=== PATIENT | male | born 1985 | race African-American/Black ===

== ENCOUNTER 2017-04-15 15:17 | Emergency (ER) | payer SELFPAY ==
[2017-04-15] MEDS ORDERED: diphenhydrAMINE HCl 25 MG CAP ONE (15:50)
[2017-04-15] MEDS ORDERED: Prochlorperazine 10 MG/2 ML VIAL ONE ×2 (15:50→15:53)
[2017-04-15] MEDS ORDERED: Sulfameth/Trimethoprim DS 800-160mg TAB ONE ×2 (16:07→16:08)
--- NOTE | 2017-04-15 16:08 | CT ---
CT OF THE BRAIN WITHOUT CONTRAST 04/15/[address] was done for headaches. The ventricles are normal in size with no shift. No intracr anial bleeding, mass or sign of stroke was found. The skull appears normal. There is no air fluid le naye in the sphenoid sinus and the mastoid air cells are clear. There is some minor mucosal thickenin g in the ethmoid sinuses bilaterally. IMPRESSION: 1. No acute intracranial findings. 2. Minor mucosal thickening in the ethmoid sinuses. POS: HOME
== END 2017-04-15 16:10 | disposition home or self-care (01) ==
LOC: BURERS 15:17
DX: J01.90 Acute sinusitis, unspecified (principal)
CPT/HCPCS: 70450; J0780

== ENCOUNTER 2017-11-17 21:04 | Emergency (ER) | payer BC, SELFPAY ==
[2017-11-17] MEDS ORDERED: Ketorolac Tromethamine 60 MG/2 ML VIAL ONE (21:19)
== END 2017-11-17 21:25 | disposition home or self-care (01) ==
LOC: BURERS 21:04
DX: J02.9 Acute pharyngitis, unspecified (principal)
CPT/HCPCS: 96372; J1885

== ENCOUNTER 2018-03-13 22:33 | Emergency (ER) | payer BC ==
[2018-03-13 23:17] LABS: Hemoglobin 12.5 g/dL (14.0-18.0); Mean Corpuscular HGB CONC 30.4 g/dL (32.0-36.0); Mean Corpuscular Hemoglobin 21.2 pg (27.0-31.0); Mean Corpuscular Volume 69.7 fL (78.0-98.0); Mean Platelet Volume 12.9 fL (7.4-10.4); Platelet Count 215 thou/uL (130-400); RBC Distribution Width 12.9 % (11.5-14.5); White Blood Cell (WBC) Count 6.8 thou/uL (4.8-10.8)
[2018-03-13 23:24] LABS: ALT (SGPT) 18 U/L (8-55); AST (SGOT) 19 U/L (5-34); Alkaline Phosphatase 79 U/L (40-150); Anion Gap 13 mmol/L (10-20); BUN (Urea Nitrogen) 11 mg/dL (8.9-20.6); Bilirubin, Total 0.2 mg/dL (0.2-1.2); Calc. Creatinine Clearance 0 mL/min (70-130); Calcium 8.9 mg/dL (7.8-10.44); Carbon Dioxide 24 mmol/L (22-29); Chloride 108 mmol/L (98-107); Estimated GFR-MDRD Greater than 90; Glucose 100 mg/dL (70-105); Magnesium 1.9 mg/dL (1.6-2.6); Potassium 4.2 mmol/L (3.5-5.1); Sodium 141 mmol/L (136-145)
[2018-03-13 23:32] LABS: #Basophils 0.2 thou/uL (0.0-0.2); #Eosinphils 0.4 thou/uL (0.0-0.7); #Lymphocytes 2.7 thou/uL (1.20-3.40); #Monocytes 0.7 thou/uL (0.11-0.59); #Neutrophils 2.9 thou/uL (1.40-6.50); %Basophils 2.5 % (0.0-1.0); %Eosinophils 5.3 % (0.0-10.0); %Lymphocytes 39.5 % (21.0-51.0); %Monocytes 10.2 % (0.0-10.0); %Neutrophils 42.5 % (42.0-75.0); Hypochromia SLIGHT = 6-15 cells (100X) (0-5/hpf); MDiff Complete? YES; Microcytosis SLIGHT = 6-15 cells (100X) (0-5/hpf); PLT Morphology Comment Appears Adequate
[2018-03-13 23:52] LABS: CKMB 2.2 ng/mL (0-6.6); Troponin I Less than 0.010 ng/mL (< 0.028)
--- NOTE | 2018-03-14 07:25 | RAD ---
CHEST 2 VIEWS: Date: 03/13/18 The heart is normal in size and the lungs are clear. No infiltrate or effusion seen. There is no vasc ular congestion or edema. The trachea bows very slightly towards the left at the thoracic inlet, but this may be due to the patient being turned slightly. One should be sure that there is no palpable th yroid abnormality here. The bony structures are unremarkable. IMPRESSION: 1. No acute thoracic findings. 2. See comments regarding trachea. CODE T. POS: HOME
== END 2018-03-14 00:23 | disposition home or self-care (01) ==
LOC: BURERS 22:33
DX: D50.9 Iron deficiency anemia, unspecified (principal)
CPT/HCPCS: 36415; 71046; 80053; 82553; 83735; 84443; 84484; 85025; 93005; 94760

== ENCOUNTER 2018-03-21 19:17 | Emergency (ER) | payer BC ==
[2018-03-21] MEDS ORDERED: traMADol HCl 50 MG TAB ONE (19:51)
[2018-03-21] MEDS ORDERED: Ibuprofen 800 MG TAB ONE (19:51)
== END 2018-03-21 19:58 | disposition home or self-care (01) ==
LOC: BURERS 19:17
DX: M26.602 Left temporomandibular joint disorder, unspecified (principal)
CPT/HCPCS: 99283

== ENCOUNTER 2019-03-17 01:00 | Emergency (ER) | payer BC ==
[2019-03-17] MEDS ORDERED: Ibuprofen 800 MG TAB ONE (01:23)
[2019-03-17] MEDS ORDERED: Cyclobenzaprine 10 MG TAB ONE (01:23)
== END 2019-03-17 01:20 | disposition home or self-care (01) ==
LOC: BURERS 01:00
DX: M62.830 Muscle spasm of back (principal)
CPT/HCPCS: 99283

== ENCOUNTER 2019-10-16 16:52 | Emergency (ER) | payer BC | END 2019-10-16 17:45 | disposition home or self-care (01) | LOC: BURERS 16:52 | DX: J06.9 Acute upper respiratory infection, unspecified (principal) | CPT/HCPCS: 99283 ==

== ENCOUNTER 2019-12-18 20:08 | Emergency (ER) | payer BC, OTHER ==
[2019-12-18] MEDS ORDERED: Ondansetron PF 4 MG/2 ML Vial ONE (20:17)
[2019-12-18 20:56] LABS: #Basophils 0.1 thou/uL (0.0-0.2); #Lymphocytes 1.6 thou/uL (1.20-3.40); #Monocytes 0.5 thou/uL (0.11-0.59); #Neutrophils 3.4 thou/uL (1.40-6.50); %Basophils 1.1 % (0.0-1.0); %Monocytes 9.5 % (0.0-10.0); %Neutrophils 61.4 % (42.0-75.0); ALT (SGPT) 25 U/L (8-55); AST (SGOT) 36 U/L (5-34); Alkaline Phosphatase 69 U/L (40-110); Anion Gap 15 mmol/L (10-20); BUN (Urea Nitrogen) 15 mg/dL (8.9-20.6); Bilirubin, Total 0.5 mg/dL (0.2-1.2); Calc. Creatinine Clearance 0 mL/min (70-130); Calcium 8.6 mg/dL (7.8-10.44); Carbon Dioxide 20 mmol/L (22-29); Chloride 101 mmol/L (98-107); Estimated GFR-MDRD 61; Globulin 4.1 g/dL (2.4-3.5); Glucose 102 mg/dL (70-105); Hemoglobin 14.4 g/dL (14.0-18.0); Hypochromia SLIGHT = 6-15 cells (100X) (0-5/hpf); Large Platelets MODERATE; MDiff Complete? YES; Mean Corpuscular HGB CONC 28.7 g/dL (32.0-36.0); Mean Corpuscular Hemoglobin 20.2 pg (27.0-31.0); Mean Corpuscular Volume 70.4 fL (78.0-98.0); Mean Platelet Volume 10.9 fL (7.4-10.4); Microcytosis MODERATE=15-30 cells (100X) (0-5/hpf); Platelet Count 152 thou/uL (130-400); Potassium 4.2 mmol/L (3.5-5.1); Protein, Total 8.1 g/dL (6.0-8.3); RBC Distribution Width 12.9 % (11.5-14.5); Red Blood Cell (RBC) Count Greater than 7.09 mill/uL (4.70-6.10); Sodium 132 mmol/L (136-145); White Blood Cell (WBC) Count 5.6 thou/uL (4.8-10.8)
[2019-12-18] MEDS ORDERED: Ibuprofen 200 MG TAB ONE (21:40)
--- NOTE | 2019-12-19 10:57 | RAD ---
PORTABLE CHEST: DATE: 12/18/2019. FINDINGS: An AP portable film at 2048 is compared with a 03/13/2018 study. There is less than a deep inspiration . This plus the portable technique make fine details harder to see in this patient. There is probab ly a little bit of right basilar streaking and there may be some in the lingula on the left side. Th e upper lobes seem relatively clear in the apical regions. There are no large effusions. IMPRESSION: Questionable basilar streaking. POS: HOME
== END 2019-12-18 21:55 | disposition home or self-care (01) ==
LOC: BURERS 20:08
DX: U07.1 COVID-19 (principal); E66.9 Obesity, unspecified
CPT/HCPCS: 71045; 80053; 85025; 96361; 96374; J2405

== ENCOUNTER 2019-12-22 11:14 | Emergency (ER) | payer BC, OTHER ==
[2019-12-22 12:14] LABS: Bilirubin Small (Negative); Blood, Urine Trace (Negative); Clarity Slightly Cloudy (Clear); Glucose, Urine (Dipstick) Negative (Negative); Leukocyte Negative (Negative); Nitrite Negative (Negative); Protein, Urine (Dipstick) 100 mg/dL (Neg-Trace)
[2019-12-22 12:21] LABS: Bacteria/HPF Rare-Few HPF (None Seen); Broad Cast None Seen LPF (None Seen); Calcium Oxalate Crystals None Seen HPF (None Seen); Cellular Cast None Seen LPF (None Seen); Epithelial Cast None Seen LPF (None Seen); Fatty Cast None Seen LPF (None Seen); Mucous/LPF 1+ LPF (<2+); Other Casts None Seen LPF (None Seen); Oval Fat Bodies/HPF None Seen HPF (None Seen); RBC/HPF 0-3 HPF (0-3); Red Blood Cell Cast None Seen LPF (None Seen); Renal Epithelial None Seen HPF (None Seen); Sperm/HPF None Seen HPF (None Seen); Squamous Epithelial 0-3 HPF (0-3); Transitional Epithelial None Seen HPF (None Seen); Trichomonas/HPF None Seen HPF (None Seen); Triple Phosphate Crystal None Seen HPF (None Seen); Unclassified Crystals None Seen HPF (None Seen); Waxy Cast None Seen LPF (None Seen); White Blood Cell Cast None Seen LPF (None Seen); Yeast-Budding None Seen HPF (None Seen); Yeast-Hyphae None Seen HPF (None Seen)
[2019-12-22 13:17] LABS: ALT (SGPT) 19 U/L (8-55); AST (SGOT) 32 U/L (5-34); Albumin 3.8 g/dL (3.5-5.0); Alkaline Phosphatase 66 U/L (40-110); Anion Gap 14 mmol/L (10-20); BUN (Urea Nitrogen) 11 mg/dL (8.9-20.6); Bilirubin, Total 0.6 mg/dL (0.2-1.2); Calc. Creatinine Clearance 0 mL/min (70-130); Carbon Dioxide 21 mmol/L (22-29); Chloride 104 mmol/L (98-107); Estimated GFR-MDRD Greater than 90; Globulin 3.8 g/dL (2.4-3.5); Glucose 120 mg/dL (70-105); Lipase 32 U/L (8-78); Potassium 3.8 mmol/L (3.5-5.1); Protein, Total 7.6 g/dL (6.0-8.3); Sodium 135 mmol/L (136-145)
[2019-12-22 13:20] LABS: #Basophils 0.2 thou/uL (0.0-0.2); #Eosinphils 0.2 thou/uL (0.0-0.7); #Lymphocytes 1.4 thou/uL (1.20-3.40); #Monocytes 1.2 thou/uL (0.11-0.59); #Neutrophils 6.5 thou/uL (1.40-6.50); %Basophils 1.6 % (0.0-1.0); %Eosinophils 2.3 % (0.0-10.0); %Lymphocytes 14.5 % (21.0-51.0); %Monocytes 12.4 % (0.0-10.0); %Neutrophils 69.2 % (42.0-75.0); Hemoglobin 13.2 g/dL (14.0-18.0); Hypochromia SLIGHT = 6-15 cells (100X) (0-5/hpf); Large Platelets SLIGHT; MDiff Complete? YES; Mean Corpuscular Volume 71.3 fL (78.0-98.0); Mean Platelet Volume 11.5 fL (7.4-10.4); Microcytosis SLIGHT = 6-15 cells (100X) (0-5/hpf); Platelet Count 249 thou/uL (130-400); RBC Distribution Width 12.8 % (11.5-14.5); Red Blood Cell (RBC) Count 6.64 mill/uL (4.70-6.10); White Blood Cell (WBC) Count 9.4 thou/uL (4.8-10.8)
[2019-12-22] MEDS ORDERED: cefTRIAXone\\ROCEPHIN 2 GM VIAL ONE (13:35)
[2019-12-22] MEDS ORDERED: Sodium Chloride 0.9% 100 ML ONE (13:35)
[2019-12-22] MEDS ORDERED: Azithromycin 500 MG VIAL ONE (13:35)
--- NOTE | 2019-12-22 13:53 | CT ---
CT ABDOMEN AND PELVIS WITHOUT CONTRAST: Date: 12-22-[address] was done for evaluation of right upper quadrant pain. The patient is known Covid pos itive. A recent chest x-ray showed some basilar streaking. FINDINGS: Today's exam shows a peripheral infiltrate in the right lower lobe posteriorly. It is partially dense and partially ground glass. There is also a very tiny patch in the left lower lobe peripherally. Thi s is presumably related to his Covid diagnosis. The liver, spleen, pancreas, adrenal glands and aorta were unremarkable within the limitations of a n oncontrast scan. The gallbladder was 8 cm long, but it did not seem thick, nor was there any inflamma tory change around it. It did not really appear distended (said knowing that some Covid patients expe rience cholestasis). There is a 2 cm ill-defined lucency in the middle third of the left kidney medially. Statistically, t his is most likely a cyst, however, other pathology is possible including abscess or tumor. My unders tanding is that the patient does not have symptoms on this side. Nevertheless, it would be important in this patient to get an elective ultrasound follow up to prove if it is purely cystic. CT of the pelvis shows no pelvic masses, inflammatory changes or free fluid. The bony structures were unremarkable. IMPRESSION: 1. Peripheral right lower lobe infiltrate posteriorly and tiny patchy infiltrate in the left lower lo be. These are presumed to be of consequence of the known Covid diagnosis. 2. 8 cm long gallbladder, but no signs that it may be distended or the wall be thickened. 3. 2 cm amorphous lucency in the left kidney. Statistically, most likely a cyst, but ultrasound is st rongly recommended to be certain. 4. No evidence of bowel infarction, thickening, free air or portal venous air within the limitations of a noncontrast study. Findings and recommendations discussed with Dr. Zaragoza at 1320 on 12-22-2019. POS: HOME
--- NOTE | 2019-12-22 15:51 | RAD ---
PORTABLE CHEST: Date: 12-22-2019 An AP portable film at 1404 is compared with a 12-18-2019 study. FINDINGS: The right basilar streaking seen previously and possible lingular streaking, is not evident today. On this film, the lungs seem fairly clear, however, on a CT done just prior to this it showed a periphe ral infiltrate in the right lower lobe posteriorly. This is not visible on this plain radiograph. The mediastinum currently appears normal. The upper lobes are clear. The trachea is midline. IMPRESSION: No focal pulmonary findings of concern. However, see CT report done earlier the same day. POS: HOME
== END 2019-12-22 14:10 | disposition home or self-care (01) ==
LOC: BURERS 11:14
DX: U07.1 COVID-19 (principal); J18.9 Pneumonia, unspecified organism; R10.9 Unspecified abdominal pain; Z09 Encounter for follow-up examination after completed treatment for conditions other than malignant neoplasm; Z86.19 Personal history of other infectious and parasitic diseases; E66.9 Obesity, unspecified
CPT/HCPCS: 71045; 74176; 80053; 81003; 81015; 83605; 83690; 85025; J0456; J0696; J3490

== ENCOUNTER 2019-12-26 12:30 | Emergency (ER) | payer BC, OTHER ==
[2019-12-26 13:27] LABS: #Basophils 0.3 thou/uL (0.0-0.2); #Lymphocytes 2.1 thou/uL (1.20-3.40); #Monocytes 1.3 thou/uL (0.11-0.59); #Neutrophils 15.7 thou/uL (1.40-6.50); %Basophils 1.5 % (0.0-1.0); %Eosinophils 0.1 % (0.0-10.0); %Lymphocytes 10.8 % (21.0-51.0); %Monocytes 6.9 % (0.0-10.0); %Neutrophils 80.8 % (42.0-75.0); Hemoglobin 12.6 g/dL (14.0-18.0); Mean Corpuscular Volume 69.2 fL (78.0-98.0); Platelet Count 323 thou/uL (130-400); RBC Distribution Width 12.1 % (11.5-14.5); Red Blood Cell (RBC) Count 6.28 mill/uL (4.70-6.10); White Blood Cell (WBC) Count 19.5 thou/uL (4.8-10.8)
[2019-12-26 13:29] LABS: Bilirubin Small (Negative); Blood, Urine Small (Negative); Clarity Clear (Clear); Glucose, Urine (Dipstick) Negative (Negative); Ketone, Urine Negative (Negative); Leukocyte Negative (Negative); Nitrite Negative (Negative); Protein, Urine (Dipstick) 100 mg/dL (Neg-Trace)
[2019-12-26 13:44] LABS: ALT (SGPT) 74 U/L (8-55); AST (SGOT) 66 U/L (5-34); Albumin 3.6 g/dL (3.5-5.0); Alkaline Phosphatase 74 U/L (40-110); Anion Gap 14 mmol/L (10-20); BUN (Urea Nitrogen) 17 mg/dL (8.9-20.6); Bilirubin, Total 0.7 mg/dL (0.2-1.2); Calc. Creatinine Clearance 0 mL/min (70-130); Carbon Dioxide 23 mmol/L (22-29); Chloride 100 mmol/L (98-107); Estimated GFR-MDRD 71; Globulin 4.7 g/dL (2.4-3.5); Glucose 138 mg/dL (70-105); Lipase 64 U/L (8-78); Potassium 3.9 mmol/L (3.5-5.1); Protein, Total 8.3 g/dL (6.0-8.3); Sodium 133 mmol/L (136-145)
[2019-12-26 13:49] LABS: RBC/HPF 0-3 HPF (0-3); Squamous Epithelial 0-3 HPF (0-3); WBC/HPF 0-3 HPF (0-3)
[2019-12-26 13:50] LABS: Bacteria/HPF Rare-Few HPF (None Seen)
[2019-12-26] MEDS ORDERED: Cefepime 2 GM VIAL ONE (13:51)
[2019-12-26] MEDS ORDERED: Sodium Chloride 0.9% 100 ML ONE (13:51)
[2019-12-26 13:57] LABS: MDiff Complete? YES; Microcytosis SLIGHT = 6-15 cells (100X) (0-5/hpf); Platelet Morphology Comment Appears Adequate
[2019-12-26] MEDS ORDERED: Vancomycin 1.5 GRAM/300 ML BAG ONE (14:11)
--- NOTE | 2019-12-26 17:56 | CT ---
CT CHEST, ABDOMEN AND PELVIS WITHOUT CONTRAST 12/26/[address] of the chest, abdomen and pelvis was done without oral or IV contrast. Comparison is made w ith the recent prior study dated 12/22/19. CT OF THE THORAX: A dense right lower lobe consolidation is seen posteriorly consistent with pneumonia. This has become denser and larger in coverage since the prior exam. There are a few patchy ground glass areas in the left upper lobe consistent with the patient's COVID diagnosis. There are no effusions. No mediastina l mass or substantial adenopathy was seen. CT OF THE ABDOMEN AND PELVIS: CT of the abdomen and pelvis showed no acute findings in the liver, spleen, pancreas, adrenal glands, kidneys, gallbladder or abdominal aorta within the limitations of a noncontrast study. As before, th ere is a 2 cm rounded lucency in the mid left kidney. It has not changed in size or shape. Statistica lly, it is most likely a cyst, but ultrasound is needed to confirm this at some point. The gallbladde r was previously rather large, but today it is normal in size. There is no inflammatory change around it. The bowel shows no dilation, wall thickening, or inflammatory change around it. No free air or free f luid was seen. An incidental small calcification seen near the upper left ureter does not appear to be in it, nor is there any hydronephrosis, nor has it changed at all in appearance since the prior st udy. I doubt its significance. CT of the pelvis shows no pelvic masses, fluid collections, or inflammatory changes. IMPRESSION: 1. Right lower lobe pneumonia greater in density and coverage over the last four days. 2. A few tiny patchy ground glass densities in the left upper lobe consistent with the known kelly gnosis of COVID. 3. No enlargement of the gallbladder today. 4. No other issues with the bowel or other major organs that appear acute. 5. 2 cm lucency in the left kidney, unchanged. Statistically most likely a cyst, but elective ul trasound should be done at some point to prove this. Findings discussed with Dr. Zaragoza at 1352 on 12/26/19. POS: HOME
== END 2019-12-26 15:11 | disposition short-term general hospital (02) ==
LOC: BURERS 12:30
DX: A41.9 Sepsis, unspecified organism (principal); J18.9 Pneumonia, unspecified organism; Z79.899 Other long term (current) drug therapy
CPT/HCPCS: 71250; 74177; 80053; 81003; 81015; 83605; 83690; 83880; 84484; 85025; 87040; 87086; 93005; 96361; 96365; 96367; J0692; J3370; J3490

== ENCOUNTER 2021-12-29 18:09 | Emergency (ER) | payer BC ==
[2021-12-29] MEDS ORDERED: Ketorolac Tromethamine 30 MG/ML VIAL ONE (18:30)
[2021-12-29 18:55] LABS: ALT (SGPT) 26 U/L (8-55); AST (SGOT) 27 U/L (5-34); Albumin 4.1 g/dL (3.5-5.0); Alkaline Phosphatase 77 U/L (40-110); Anion Gap 15 mmol/L (10-20); BUN (Urea Nitrogen) 16 mg/dL (8.9-20.6); Bilirubin, Total 0.3 mg/dL (0.2-1.2); Calc. Creatinine Clearance 0 mL/min (70-130); Calcium 8.9 mg/dL (7.8-10.44); Carbon Dioxide 22 mmol/L (22-29); Chloride 108 mmol/L (98-107); Globulin 3.9 g/dL (2.4-3.5); Glucose 113 mg/dL (70-105); Potassium 3.6 mmol/L (3.5-5.1); Sodium 141 mmol/L (136-145)
[2021-12-29 18:59] LABS: Anisocytosis SLIGHT = 6-15 cells (100X) (0-5/hpf); Hemoglobin 13.1 g/dL (14.0-18.0); Hypochromia MODERATE=16-30 cells (100X) (0-5/hpf); MDiff Complete? YES; Mean Corpuscular HGB CONC 30.6 g/dL (32.0-36.0); Mean Corpuscular Hemoglobin 21.3 pg (27.0-31.0); Mean Corpuscular Volume 69.8 fL (78.0-98.0); Mean Platelet Volume 10.7 fL (7.4-10.4); Microcytosis MODERATE=15-30 cells (100X) (0-5/hpf); Platelet Count 222 thou/uL (130-400); Poikilocytosis SLIGHT = 6-15 cells (100X) (0-5/hpf); RBC Distribution Width 13.6 % (11.5-14.5); Red Blood Cell (RBC) Count 6.14 mill/uL (4.70-6.10); Rouleaux Formation SLIGHT = 1-5 cells (100X) (None Seen)
[2021-12-29 19:02] LABS: Band 1 % (5-11); Eosinophils 2 % (0-10); Lymphocytes 23 % (21-51); Manual Diff?? YES; Monocytes 11 % (0-10); Neutrophil 62 % (42-75); Reactive Lymphocytes 1 % (0-10)
== END 2021-12-29 20:02 | disposition home or self-care (01) ==
LOC: BURERS 18:09
DX: E86.0 Dehydration (principal); B34.9 Viral infection, unspecified; E66.9 Obesity, unspecified; D50.9 Iron deficiency anemia, unspecified
CPT/HCPCS: 36415; 71045; 80053; 84484; 85025; 87804; 93005; 96361; 96374; J1885

== ENCOUNTER 2022-04-06 16:10 | Emergency (ER) | payer BC ==
[2022-04-06] MEDS ORDERED: Dexamethasone 4 MG TAB ONE (17:26)
[2022-04-06] MEDS ORDERED: Acetaminophen 500 MG TAB ONE (17:26)
[2022-04-06] MEDS ORDERED: Bicillin LA 1.2 MILLION UNITS/2 ML SYRINGE ONE (17:44)
== END 2022-04-06 18:00 | disposition home or self-care (01) ==
LOC: BURERS 16:10
DX: J02.0 Streptococcal pharyngitis (principal)
CPT/HCPCS: 87430; 87804; 96372; 99283; J0561; J8540

== ENCOUNTER 2023-01-30 04:54 | Emergency (ER) | payer BC ==
[2023-01-30] MEDS ORDERED: Acetaminophen 500 MG TAB ONE (05:06)
[2023-01-30] MEDS ORDERED: Ibuprofen 800 MG TAB ONE (05:06)
[2023-01-30 06:01] LABS: SARS-CoV-2 NAA Rapid Test Not Detected (NotDetected)
[2023-01-30 06:45] LABS: Bilirubin Negative (Negative); Blood, Urine Large (Negative); Clarity Clear (Clear); Glucose, Urine (Dipstick) Negative (Negative); Ketone, Urine Negative (Negative); Leukocyte Large (Negative); Nitrite Positive (Negative); Protein, Urine (Dipstick) 100 mg/dL (Neg-Trace)
[2023-01-30 06:53] LABS: CAUTI Indications for Culture Dysuria,urgency,freq; RBC/HPF 21-50 HPF (0-3); WBC/HPF Greater Than 50 HPF (0-3)
[2023-01-30 06:54] LABS: Bacteria/HPF Rare-Few HPF (None Seen); Squamous Epithelial 0-3 HPF (0-3)
[2023-01-30 06:55] LABS: Urine Culture Reflex Yes Yes
[2023-01-30] MEDS ORDERED: cefTRIAXone (ROCEPHIN) 1 GM VIAL ONE (07:09)
[2023-01-30] MEDS ORDERED: Sodium Chloride 0.9% 100 ML ONE (07:09)
[2023-01-30 07:11] LABS: Hemoglobin 13.1 g/dL (14.0-18.0); Mean Corpuscular HGB CONC 30.7 g/dL (32.0-36.0); Mean Corpuscular Volume 68.5 fl (78.0-98.0); Mean Platelet Volume 10.2 fL (7.4-10.4); Platelet Count 217 10x3/uL (130-400); RBC Distribution Width 12.7 % (11.5-14.5); Red Blood Cell (RBC) Count 6.22 mill/uL (4.70-6.10); White Blood Cell (WBC) Count 17.7 10x3/uL (4.8-10.8)
[2023-01-30 07:28] LABS: Lymphocytes 10 % (21-51); MDiff Complete? YES; Microcytosis SLIGHT = 6-15 cells (100X) (0-5/hpf); Monocytes 11 % (0-10); Neutrophil 79 % (42-75); Platelet Adequacy Comment Appears Adequate
[2023-01-30 07:30] LABS: ALT (SGPT) 16 U/L (8-55); AST (SGOT) 14 U/L (5-34); Albumin 4.1 g/dL (3.5-5.0); Alkaline Phosphatase 86 U/L (40-110); Anion Gap 15 mmol/L (10-20); BUN (Urea Nitrogen) 13 mg/dL (8.9-20.6); Bilirubin, Total 0.8 mg/dL (0.2-1.2); Calc. Creatinine Clearance 0 mL/min (70-130); Calcium 9.2 mg/dL (7.8-10.44); Carbon Dioxide 22 mmol/L (22-29); Chloride 106 mmol/L (98-107); Estimated GFR 70; Globulin 3.9 g/dL (2.4-3.5); Glucose 113 mg/dL (70-105); Potassium 3.6 mmol/L (3.5-5.1); Sodium 139 mmol/L (136-145)
[2023-01-30 13:29] LABS: Chlam.trachomatis by PCR,Urine Not Detected (NotDetected); GC N.gonorrhoeae PCR,UrineVOID Not Detected (NotDetected)
== END 2023-01-30 09:40 | disposition short-term general hospital (02) ==
LOC: BURERS 04:54
DX: A41.9 Sepsis, unspecified organism (principal); N39.0 Urinary tract infection, site not specified; Z20.822 Contact with and (suspected) exposure to COVID-19
CPT/HCPCS: 36415; 71045; 80053; 81001; 83605; 84484; 85025; 87040; 87077; 87086; 87186; 87491; 87591; 96361; 96374; J0696; J3490